=== PATIENT | male | born 1955 | race Caucasian/White ===

== ENCOUNTER → 2018-10-27 | Outpatient (CLI) | END | disposition home or self-care (01) ==

== ENCOUNTER → 2018-11-10 | Outpatient (CLI) | END | disposition home or self-care (01) ==

== ENCOUNTER 2018-12-31 07:11 | Day surgery (SDC) | payer MEDICARE, BC ==
[2018-12-30 11:17] VITALS: BMI 32.4
[2018-12-31] VITALS (11 sets, daily range): BP systolic 106–155; BP diastolic 55–89; PULSE 48–59; RESP 15–20; Ht 175.3 cm; Wt 70.1 kg
[~2018-12-31] VITALS: Ht 175.3 cm; Wt 70.1 kg
[~2018-12-31 07:11] MED LIST: DIAZEPAM 5 MG TAB PO ONE; DIPHENHYDRAMINE 50 MG CAP PO ONE; FAMOTIDINE 20 MG TAB PO ONE; HYDR-2059 PO; NAPR-688 PO; SOD CHLORIDE 0.45% 1,000 ML IV SCH
[2018-12-31] MEDS ORDERED: PRAV10TA43 PO (07:40)
[2018-12-31] MEDS ORDERED: ASPI81TA52 PO (07:40)
[2018-12-31] MEDS ORDERED: LEVO100T82 PO (07:41)
[2018-12-31] MEDS ORDERED: METO-335 PO (07:41)
[2018-12-31] MEDS ORDERED: HEPARIN 1000 UNITS/ML 10 ML INJ ONE (08:51)
[2018-12-31] MEDS ORDERED: FENTAnyl 50 MCG/ML VIAL ONE (08:51)
[2018-12-31] MEDS ORDERED: MIDAZOLAM 1 MG/ML 2 ML INJ ONE (08:51)
[2018-12-31] MEDS ORDERED: IODIXANOL LOCM 100 ML BTL ONE ×4 (08:51→10:50)
[2018-12-31] MEDS ORDERED: VERAPAMIL 5 MG INJ ONE (08:52)
[2018-12-31] MEDS ORDERED: NITROGLYCERIN (IC) 100 MCG/ML INJ ONE (08:52)
[2018-12-31] MEDS ORDERED: ADENOSINE 30 ML ONE (10:17)
[2018-12-31] MEDS ORDERED: SOD CHLORIDE 0.9% 1,000 ML IV SCH (10:57)
[2018-12-31] MEDS ORDERED: AL HYDROX/MG HYDROX/SIMETH 30 ML CUP PO PRN (11:00)
[2018-12-31] MEDS ORDERED: OXYCODONE/ACETAMINOPHEN (5/325) TAB PO PRN (11:00)
[2018-12-31] MEDS ORDERED: ZOLPIDEM 5 MG TAB PO PRN (11:00)
[2018-12-31] MEDS ORDERED: ACETAMINOPHEN 325 MG TAB PO PRN (11:00)
[2018-12-31] MEDS ORDERED: morphine 2 MG INJ IV PRN (11:00)
[2018-12-31] MEDS ORDERED: ONDANSETRON 4 MG INJ IV PRN (11:00)
[2018-12-31] MEDS ORDERED: ASPIRIN 325 MG TAB ONE (11:01)
[2018-12-31] MEDS ORDERED: TICAGRELOR 90 MG TABLET ONE (11:01)
--- NOTE | 2018-12-31 11:02 | SIPON ---
Date/Time of Note Date/Time of Note DATE: 12/31/18 TIME: 11:01 Operative Report Preoperative Diagnosis 1.Chest pain 2.abnl mpi 3.abnl cta Postoperative Diagnosis 1.obstructuve cad s/p stent to LAD x 1 with ROSARIO Operation/Procedure Performed 1.LHC 2.PTCA/stent x 1 to LAD 3.FFR LAD Surgeon see signature line public services assistant 1.Chandler Anesthesia: moderate sedation Estimated blood loss: minimal Transfusion Required none Specimen none Grafts/Implants none Complications none TOLU VOSS Dec 31, 2018 11:02
--- NOTE | 2018-12-31 11:45 | NUR ---
patient arrived from [facility], alert and oriented, denies pain, no short of breath, O2 sat 100% in RA, pt SB in the monitor. oriented to the room, call light in reached.
--- NOTE | 2018-12-31 13:02 | NUR ---
removal of air to TR band right wrist started, no bleeding noted.
[2018-12-31] MEDS ORDERED: INFLUENZA VIRUS VACCINE 0.5 ML (DISPENSING) IM* ONE (13:30)
--- NOTE | 2018-12-31 14:14 | CARRPT ---
DATE OF PROCEDURE: 12/31/2018 TYPE OF PROCEDURES: 1. Left heart catheterization. 2. Coronary angiography. 3. Fractional flow reserve and an IFR performed in LAD. 4. Measurement of left ventricular end-diastolic pressure. 5. Moderate conscious sedation. 6. Percutaneous transluminal coronary angioplasty with placement of lines by [employer]ience drug-eluting mirella nt x1 to mid LAD, 3.0 x 18 mm and 2.5 x 8 mm. ATTENDING PHYSICIAN: Tolu Bashir MD REFERRING PHYSICIAN: Levon Dean MD INDICATION: Chest pain refractory to medical therapy, positive stress test, positive CTA for obstruc tive coronary artery disease. BRIEF HISTORY AND HOSPITAL COURSE: Mr. Marie is a 63-year-old male with history of hypertension and dyslipidemia, who initially presented with complaints of substernal chest pain and underwent a ca rdiac stress test showing positive ischemia and then a CTA that revealed possible multi-distribution coronary artery disease; therefore he has been referred for left heart catheterization to assess for possibility of significant obstructive coronary artery disease lending to symptoms of substernal ches t pain and positive stress test findings and positive CTA. DESCRIPTION OF PROCEDURE: After informed consent was obtained, the patient was brought to the [facility] cardiac catheterization lab where his right radial area was prepped and draped in usual sterile fashion. In order to achieve adequate anesthesia, a 2% lidocaine was infiltrated i nto the right radial area. In the modified Seldinger technique, the radial artery was cannulated and a 6-Bahraini arterial sheath was placed. A 6-Bahraini JL3.5 catheter was used to cannulate the left cayetano n coronary ostium. With contrast injection, multiple views of the left coronary arterial system were obtained. JL3.5 was removed with a guidewire and a JR4 was used to cannulate the right coronary art erial ostium unsuccessfully. We then attempted a [place] Right unsuccessfully and finally we were a ble to cannulate it with an AL1 as it came off superior and posterior. After which with contrast inj ection, multiple views of this vessel were obtained. AL1 was removed. A 6-Bahraini pigtail was passed down the ascending aorta and placed in LV. LVEDP was measured and pullback across the aortic valve to assess for significant gradient, which there was not and removed. Subsequently at this time, the patient had an ACT measured and was given an additional 3000 of heparin in order to achieve an adequa te pre-interventional ACT and we moved directly into an interventional procedure. The patient had a Q3.5 guide used to cannulate the left main coronary ostium. A 0.014 pressure wire was passed distal to the lesion and an IFR was initially performed achieving result of 0.87, positive for obstructive l esion. It was pulled back as there were tandem lesions in between these 2 lesions and then repeated it and returned at 0.92 above the cutoff for flow-limiting lesion. Subsequently, the wire was then p ushed distal again and FFR was performed achieving result of 0.76, positive for flow-limiting lesion. Subsequently at this time given the findings of IFR and FFR, we elected to stent the more distal 2 lesions and the first lesion had been negative on its own with IFR assessment. Subsequently, the les ion was pretreated with a 2.5 x 15 mm balloon up to 12 to 14 atmospheres and it was stented with a 3. 0 x 18 mm drug-eluting stent deployed at 14 atmospheres x2. The stent delivery balloon was removed. Followup angiogram was obtained revealing excellent result, deployment of stent, SHAHANA 3 flow through out the vessel and possible step down versus edge dissection subsequent at the distal portion. Subse quently, a second stent 2.5 x 8 mm was placed just at the distal edge of the stent and inflated to 14 atmospheres x2. Stent delivery system was removed. Followup angiogram was obtained revealing excel lent result now with no further significant step down or dissection, SHAHANA 3 flow throughout the vesse l, no signs of complication or dissection. Subsequently at this time, the patient's guide and guidew ires were removed. The patient's sheath was removed. TR band was applied. This completed the proce dure. There were no noted complications. FINDINGS: Coronary angiography: Left main is 4 mm, no significant focal stenoses. Circumflex proxi julian is a 3 mm vessel with an ostial 20% stenosis. There is continuation AV groove, a subcentimeter vessel with areas of stenosis up to approximately 50%, high branching obtuse marginal, 2.5 mm vessel with stenosis of approximately 50% in its proximal portion and it is a trifurcation with all branche s being approximately 3 mm and the most superior branch having a stenosis of approximately 50% yet no significant focal stenoses. LAD proximally is a 3.5 mm vessel and in its mid portion has a 50% to 6 0% stenosis and then the distal portion has a 60% to 70% stenosis tubular. There is a mid branching diagonal 2 mm vessel with no significant focal stenosis. The patient's right coronary artery proxima lly is a 2.5 mm vessel, has a 70% to 80% stenosis then becomes 100% occluded and can be recapitulated completely in distal portion via right to right collateral flow as well as left to right collateral flow. PTCA and stent placement: Prior to PTCA and stent placement, the patient had a 70% stenosis. Post-P TCA and stent placement, the patient had no residual stenosis, SHAHANA 3 flow throughout the vessel, mil d step down at the end of the stent and no signs of complication including perforation or dissection. IFR revealed result of 0.87, when distal to both lesions resulted to 0.92 between the 2 lesions. FFR has the result of 0.76 distal to the 2 lesions both consistent with flow-limiting lesions of the dis chris lesion. Measurement of left ventricular end diastolic pressure is 26 to 27. No significant aortic stenosis b y gradient. TOTAL FLUOROSCOPY TIME: 18.4 minutes. TOTAL CONTRAST: 280 mL. IMPRESSION: 1. 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 2. Elevated left heart filling pressures. 3. No significant aortic stenosis by gradient. RECOMMENDATIONS: In light of procedure findings at this time, we would: 1. Maintain the patient on Brilinta 90 mg 1 tab p.o. b.i.d. as the patient has been loaded with 180 here and aspirin 81 mg 1 tab p.o. daily indefinitely as the patient was loaded with 325 here. 2. Maximize medical management. 3. Aggressive risk factor reduction. 4. The patient will be admitted to the hospital for post-intervention observation and continued conner gement of symptoms with probable discharge the following day. Dictated By: TOLU BOUCHER/CHANDANA Conf#: [id number] [facility]#: [id number]
--- NOTE | 2018-12-31 14:30 | NUR ---
TR BAND REMOVAL pt in bed alert and oriented, TR band to rt wrist intact, no hematoma, no swelling noted reverse barbeau performed, capillary refill present 1300- 2 ml of air removed, no bleeding, BP 143/73, HR 47, O2 sat 100%, RR 16. 1315- 2 ml of air removed, no bleeding, BP 152/75, HR 50, O2 sat 100%, RR 12, 1330- 2 ml of air removed, no bleeding, BP 149/80, HR- 53, O2 sat 100%, RR 14 1345 -2 ml of air removed, no bleeding, BP 134/94, HR- 54, O2 sat 100%, RR 13 1400- 2 ml of air removed, no bleeding, BP 135/80, HR- 52, O2 sat 100%, RR 16 1415- 2 ml of air removed, no bleeding, BP 135/77, HR- 50, O2 sat 100%, RR 18 1430- TR band removed, no bleeding BP 132/74, HR 50, O2 sat 100%, RR 16, cleanse site with alcohol swab dry with dry dressing applied band aid, provided pt education and instruction for post removal of TR band, verbalized understanding. will continue to monitor. Addendum: 12/31/18 at 1804 by MADELEINE GOLDMAN RN immobilizer removed.
--- NOTE | 2018-12-31 16:45 | NUR ---
pt in bed , right wrist with band aid no bleeding, no hematoma, will continue to monitor.
--- NOTE | 2018-12-31 19:11 | NUR ---
EOSS: rt wrist with band aid intact, no bleeding, no significant change of condition, continue current plan of care.
[2018-12-31] MEDS ORDERED: ATORVASTATIN 10 MG TAB PO SCH (21:00)
[2019-01-01] VITALS (7 sets, daily range): BP systolic 100–111; BP diastolic 52–61; PULSE 53–62; RESP 18–20
--- NOTE | 2019-01-01 02:55 | HP ---
DATE OF ADMISSION: 12/31/2018 CHIEF COMPLAINT: Exertional chest pain. HISTORY OF PRESENT ILLNESS: The patient is a 63-year-old gentleman with history of hypertension, dyslipidemia, hypothyroidism, was seen by Dr. Bashir' group as an outpatient due to exertional substernal chest pain. The patient underwent a nuclear stress test as an outpatient which was positive for ischemia. The patient subsequently also underwent CT coronary angiogram that revealed possible coronary artery disease. The patient was brought into hospital today and underwent a left heart cardiac catheterization. The patient was noted to have 2-vessel obstructive coronary artery disease involving intermedius to LAD. The patient underwent successful PTCA and stent placement x2. 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 The patient was given loading dose of Brilinta in the blood bank laboratory professional along with aspirin. The patient was sent to the telemetry floor. Currently denies any chest pain. No orthopnea. No headache, syncope. No history of abdominal pain. No history of recent fever or chills. No history of leg edema. No history of claudication. No history of change in vision. No history of any focal weakness. No history of any acute skin rash or any joint swelling. REVIEW OF SYSTEMS: A total of 10 systems were reviewed and all pertinent positive and negative findings have been described in HPI. Rest of the systems is unremarkable. PAST SURGICAL HISTORY: The patient is status post surgery for incarcerated right inguinal hernia. ALLERGIES: NONE. SOCIAL HISTORY: The patient smoked at least 1 pack per day, has been smoking for several decades. No heavy alcohol abuse. FAMILY HISTORY: Negative for coronary artery disease. PHYSICAL EXAMINATION: GENERAL: Revealed the patient to be awake, alert, fairly oriented. VITAL SIGNS: Temperature 98, pulse 55, respiration 18, blood pressure 106/55, O2 saturation 96% on room air. HEENT: Atraumatic, normocephalic. Conjunctivae and lids are normal. Oropharynx is clear. NECK: Supple. No mass, lymph node, thyromegaly, no carotid bruit. CHEST: Fairly clear. No use of accessory muscles. CARDIOVASCULAR: Regular rate, rhythm. S1, S2 normal. No murmur. ABDOMEN: Soft, nondistended, nontender. No organomegaly. EXTREMITIES: No leg edema. Pedal pulses are palpable. SKIN: Without acute rash or ulcer. NEUROLOGIC: The patient is awake, alert, fairly oriented with no gross focal deficit. LABORATORY DATA: Done this morning, WBC 8.8, hemoglobin 14.7, platelet 301. Sodium 142, potassium 4.4, BUN 11, creatinine 0.7, glucose 93, calcium 9.4. LDL 120. Coagulation profile including both PT, PTT and INR were within normal limits. DIAGNOSTIC DATA: Chest x-ray: No acute disease. IMPRESSION: 1. Multivessel coronary artery disease, status post PTCA and drug-eluting stent placement. Please read detailed catheterization report from Dr. Bashir. 2. Hypertension. 3. Dyslipidemia. 4. Hypothyroidism. PLAN: The patient will be started on aspirin, metoprolol, Synthroid and Lipitor in addition to Brilinta. The patient will be given IV NS. We will do a followup BMP to evaluate renal function. Plan of care was discussed with patient's family. We will optimize statin therapy. The patient was strongly advised to quit smoking. Dictated By: EITAN LUCAS/CHANDANA Conf#: [id number] DID#: [id number] CC: TOLU BASHIR MD;*EndCC* MTDD
[2019-01-01] MEDS ORDERED: LEVOTHYROXINE 100 MCG TAB PO SCH (07:00)
--- NOTE | 2019-01-01 07:06 | NUR ---
VS REMAINS STABLE. NO EPISODES OF CP. ALL NEEDS ATTENDED. WILL ENDORSE TO AM SHIFT FOR CONTINUITY OF CARE
[2019-01-01] MEDS ORDERED: TICAGRELOR 90 MG TABLET PO SCH (09:00)
[2019-01-01] MEDS ORDERED: METOPROLOL (XL) 25 MG TAB PO SCH (09:00)
[2019-01-01] MEDS ORDERED: ASPIRIN (EC) 81 MG TAB PO SCH (09:00)
[2019-01-01] MEDS ORDERED: INFLUENZA VIRUS VACCINE 0.5 ML (DISPENSING) IM* ONE (10:00)
--- NOTE | 2019-01-01 13:27 | PN ---
Date/Time of Note Date/Time of Note DATE: 01/01/19 TIME: 13:25 Assessment/Plan VTE Prophylaxis Risk score (from Ns)>0 risk: 4 SCD applied (from Ns): No Lines/Catheters IV Catheter Type (from [facility]): Saline Lock Assessment/Plan Assessment/Plan 1. Multivessel coronary artery disease, status post PTCA and drug-eluting stent placement. Please read detailed catheterization report from Dr. Bashir. -on aspirin 2. Hypertension. 3. Dyslipidemia- Synthroid 4. Hypothyroidism. -CONT Synthroid 5, Smoker - smoking cessation Patient seen in collaboration with Dr Woods Result Diagram: 01/01/19 0550 01/01/19 0550 Results 24hrs Laboratory Tests Test 01/01/19 05:50 White Blood Count 9.0 Red Blood Count 4.45 L Hemoglobin 13.7 L Hematocrit 40.7 L Mean Corpuscular Volume 91.5 Mean Corpuscular Hemoglobin 30.8 Mean Corpuscular Hemoglobin Concent 33.7 Red Cell Distribution Width 13.0 Platelet Count 277 Mean Platelet Volume 9.3 Immature Granulocytes % 0.400 Neutrophils % 68.6 Lymphocytes % 19.5 Monocytes % 7.9 Eosinophils % 2.7 Basophils % 0.9 Nucleated Red Blood Cells % 0.0 Immature Granulocytes # 0.040 H Neutrophils # 6.2 Lymphocytes # 1.8 Monocytes # 0.7 Eosinophils # 0.2 Basophils # 0.1 Nucleated Red Blood Cells # 0.0 Sodium Level 139 Potassium Level 4.2 Chloride Level 112 H Carbon Dioxide Level 23 Anion Gap 4 L Blood Urea Nitrogen 16 Creatinine 0.76 Est Glomerular Filtrat Rate mL/min > 60 Glucose Level 96 Calcium Level 9.0 Creatine Kinase 42 Creatine Kinase Index 1.1 Creatinine Kinase MB (Mass) 0.46 Troponin I 0.038 Exam/Review of Systems Exam Vitals Vital Signs Date Temp Pulse Resp B/P (MAP) Pulse Ox O2 O2 Flow FiO2 Time Delivery Rate 01/01/19 98.0 62 20 111/56 96 11:32 (74) 01/01/19 Room Air 03:38 Intake and Output 12/31/18 12/31/18 01/01/19 1515:00 23:00 07:00 IntakeIntake Total 1460 ml 650 ml BalanceBalance 1460 ml 650 ml Results Results 24hrs Laboratory Tests Test 01/01/19 05:50 White Blood Count 9.0 Red Blood Count 4.45 L Hemoglobin 13.7 L Hematocrit 40.7 L Mean Corpuscular Volume 91.5 Mean Corpuscular Hemoglobin 30.8 Mean Corpuscular Hemoglobin Concent 33.7 Red Cell Distribution Width 13.0 Platelet Count 277 Mean Platelet Volume 9.3 Immature Granulocytes % 0.400 Neutrophils % 68.6 Lymphocytes % 19.5 Monocytes % 7.9 Eosinophils % 2.7 Basophils % 0.9 Nucleated Red Blood Cells % 0.0 Immature Granulocytes # 0.040 H Neutrophils # 6.2 Lymphocytes # 1.8 Monocytes # 0.7 Eosinophils # 0.2 Basophils # 0.1 Nucleated Red Blood Cells # 0.0 Sodium Level 139 Potassium Level 4.2 Chloride Level 112 H Carbon Dioxide Level 23 Anion Gap 4 L Blood Urea Nitrogen 16 Creatinine 0.76 Est Glomerular Filtrat Rate mL/min > 60 Glucose Level 96 Calcium Level 9.0 Creatine Kinase 42 Creatine Kinase Index 1.1 Creatinine Kinase MB (Mass) 0.46 Troponin I 0.038 Medications Medication Current Medications Acetaminophen (Tylenol Tab) 650 mg Q4H PRN PO PAIN; Start 12/31/18 at 11:00 Oxycodone/ Acetaminophen (Percocet (5/ 325)) 1 tab Q4H PRN PO PAIN; Start 12/31/18 at 11:00 Morphine Sulfate (morphine) 1 mg Q1H PRN IV PAIN; Start 12/31/18 at 11:00 Zolpidem Tartrate (Ambien) 5 mg HS MAY REPEAT X 1 PRN PO INSOMNIA; Start 12/31/18 at 11:00 Al Hydrox/Mg Hydrox/Simethicone (Mag-Al Plus) 30 ml Q4H PRN PO GASTROINTESTINAL UPSET; Start 12/31/18 at 11:00 Ondansetron HCl (Zofran Inj) 4 mg Q4H PRN IV NAUSEA AND/OR VOMITING; Start 12/31/18 at 11:00 Aspirin (Halfprin) 81 mg DAILY PO Last administered on 01/01/19at 08:29; Admin Dose 81 MG; Start 01/01/19 at 09:00 Levothyroxine Sodium (Synthroid) 100 mcg BEFORE BREAKFAST PO Last administered on 01/01/19at 06:34; Admin Dose 100 MCG; Start 01/01/19 at 07:00 Metoprolol Succinate (Toprol Xl) 25 mg DAILY PO ; Start 01/01/19 at 09:00 Atorvastatin Calcium (Lipitor) 20 mg DAILY@21 PO ; Start 01/01/19 at 21:00 Ticagrelor (Brilinta) 90 mg BID PO Last administered on 01/01/19at 08:32; Admin Dose 90 MG; Start 01/01/19 at 09:[address]SE[place] Jan 01, 2019 13:27
--- NOTE | 2019-01-01 13:32 | PDOCDIS ---
Discharge Instructions CONDITION [id number] Patient Condition: [id number] Stable HOME CARE INSTRUCTIONS: [id number] Diet Instructions: [id number] Low Fat /Cholesterol ACTIVITY: [id number] Activity Restrictions: [id number] Slowly Increase Activity Rest between Activity Avoid heavy lifting Do not Drive Do not operate Machinery Do not operate Power Tool Avoid Heavy Housework [id number] Bathing Restrictions: [id number] Sponge Bath FOLLOW UP/APPOINTMENTS Follow-up Plan - FU with PMD X 1 week - FU with site head as recommended - Calll [phone] 0r got to the nearest hospital if symptoms get worse; patient verbalized understanding dc instructions Dw COURT Leonard Jan 01, 2019 13:32
[2019-01-01] MEDS ORDERED: TICA90TA PO (13:50)
--- NOTE | 2019-01-01 14:03 | CONS ---
Assessment/Plan Assessment/Plan Assessment/Plan (Daily) CAD s/p stenting LAD Dyslipidemia Hypertension Continue Toprol XL Continue ASA and Brilinta Continue Lipitor Continue Levothyroxine Follow up with Dr Bashir in 1 week Consultation Date/Type/Reason Admit Date/Time Type of Consult Cardiology Date/Time of Note DATE: 01/01/19 TIME: 14:01 Constitutional: no complaints Respiratory: no complaints Cardiovascular: no complaints Gastrointestinal: no complaints Past Medical History Home Meds Active Scripts Ticagrelor* (Brilinta*) 90 Mg Tablet, 90 MG PO BID for 30 Days, TAB Prov:INGRID JOSEPHBIR 01/01/19 Reported Medications Levothyroxine Sodium* (Levoxyl*) 100 Mcg Tablet, 100 MCG PO BEFORE BREAKFAST, #30 TAB 12/31/18 Metoprolol Succinate* (Toprol XL*) 25 Mg Tab.sr.24h, 25 MG PO DAILY, #30 TAB 12/31/18 Pravastatin Sodium* (Pravastatin Sodium*) 10 Mg Tablet, 10 MG PO HS, TAB 12/31/18 Aspirin (Low Dose Aspirin) 81 Mg Tablet.dr, 81 MG PO DAILY, #30 TAB 12/31/18 Discontinued Reported Medications Naproxen* (Naproxen*) 500 Mg Tablet, 550 MG PO BID 09/04/11 Hydrocodone Bit-Acetaminophen* (Hydrocodone-APAP*) 1 Tab Tablet, 1 TAB PO 07/24/11 Medications Current Medications Acetaminophen (Tylenol Tab) 650 mg Q4H PRN PO PAIN; Start 12/31/18 at 11:00 Oxycodone/ Acetaminophen (Percocet (5/ 325)) 1 tab Q4H PRN PO PAIN; Start 12/31/18 at 11:00 Morphine Sulfate (morphine) 1 mg Q1H PRN IV PAIN; Start 12/31/18 at 11:00 Zolpidem Tartrate (Ambien) 5 mg HS MAY REPEAT X 1 PRN PO INSOMNIA; Start 12/31/18 at 11:00 Al Hydrox/Mg Hydrox/Simethicone (Mag-Al Plus) 30 ml Q4H PRN PO GASTROINTESTINAL UPSET; Start 12/31/18 at 11:00 Ondansetron HCl (Zofran Inj) 4 mg Q4H PRN IV NAUSEA AND/OR VOMITING; Start 12/31/18 at 11:00 Aspirin (Halfprin) 81 mg DAILY PO Last administered on 01/01/19at 08:29; Admin Dose 81 MG; Start 01/01/19 at 09:00 Levothyroxine Sodium (Synthroid) 100 mcg BEFORE BREAKFAST PO Last administered on 01/01/19at 06:34; Admin Dose 100 MCG; Start 01/01/19 at 07:00 Metoprolol Succinate (Toprol Xl) 25 mg DAILY PO ; Start 01/01/19 at 09:00 Atorvastatin Calcium (Lipitor) 20 mg DAILY@21 PO ; Start 01/01/19 at 21:00 Ticagrelor (Brilinta) 90 mg BID PO Last administered on 01/01/19at 08:32; Admin Dose 90 MG; Start 01/01/19 at 09:00 Allergies: Coded Allergies: No Known Allergies (Verified Allergy, Unknown, 12/31/18) Social History Smoking Status: Never smoker Exam/Review of Systems Vital Signs Vitals Vital Signs Date Temp Pulse Resp B/P (MAP) Pulse Ox O2 O2 Flow FiO2 Time Delivery Rate 01/01/19 98.0 62 20 111/56 96 11:32 (74) 01/01/19 Room Air 03:38 Intake and Output 12/31/18 12/31/18 01/01/19 1515:00 23:00 07:00 IntakeIntake Total 1460 ml 650 ml BalanceBalance 1460 ml 650 ml Exam Constitutional: alert, oriented Head: normocephalic, atraumatic Neck: supple, non-tender Respiratory: clear to auscultation Cardiovascular: regular rate and rhythm (no m/r/g) Gastrointestinal: soft, nl liver, spleen Extremities: normal pulses Labs Result Diagram: 01/01/19 0550 01/01/19 0550 Results 24hrs Laboratory Tests Test 01/01/19 05:50 White Blood Count 9.0 Red Blood Count 4.45 L Hemoglobin 13.7 L Hematocrit 40.7 L Mean Corpuscular Volume 91.5 Mean Corpuscular Hemoglobin 30.8 Mean Corpuscular Hemoglobin Concent 33.7 Red Cell Distribution Width 13.0 Platelet Count 277 Mean Platelet Volume 9.3 Immature Granulocytes % 0.400 Neutrophils % 68.6 Lymphocytes % 19.5 Monocytes % 7.9 Eosinophils % 2.7 Basophils % 0.9 Nucleated Red Blood Cells % 0.0 Immature Granulocytes # 0.040 H Neutrophils # 6.2 Lymphocytes # 1.8 Monocytes # 0.7 Eosinophils # 0.2 Basophils # 0.1 Nucleated Red Blood Cells # 0.0 Sodium Level 139 Potassium Level 4.2 Chloride Level 112 H Carbon Dioxide Level 23 Anion Gap 4 L Blood Urea Nitrogen 16 Creatinine 0.76 Est Glomerular Filtrat Rate mL/min > 60 Glucose Level 96 Calcium Level 9.0 Creatine Kinase 42 Creatine Kinase Index 1.1 Creatinine Kinase MB (Mass) 0.46 Troponin I 0.038 Medications Medications Current Medications Acetaminophen (Tylenol Tab) 650 mg Q4H PRN PO PAIN; Start 12/31/18 at 11:00 Oxycodone/ Acetaminophen (Percocet (5/ 325)) 1 tab Q4H PRN PO PAIN; Start 12/31/18 at 11:00 Morphine Sulfate (morphine) 1 mg Q1H PRN IV PAIN; Start 12/31/18 at 11:00 Zolpidem Tartrate (Ambien) 5 mg HS MAY REPEAT X 1 PRN PO INSOMNIA; Start 12/31/18 at 11:00 Al Hydrox/Mg Hydrox/Simethicone (Mag-Al Plus) 30 ml Q4H PRN PO GASTROINTESTINAL UPSET; Start 12/31/18 at 11:00 Ondansetron HCl (Zofran Inj) 4 mg Q4H PRN IV NAUSEA AND/OR VOMITING; Start 12/31/18 at 11:00 Aspirin (Halfprin) 81 mg DAILY PO Last administered on 01/01/19at 08:29; Admin Dose 81 MG; Start 01/01/19 at 09:00 Levothyroxine Sodium (Synthroid) 100 mcg BEFORE BREAKFAST PO Last administered on 01/01/19at 06:34; Admin Dose 100 MCG; Start 01/01/19 at 07:00 Metoprolol Succinate (Toprol Xl) 25 mg DAILY PO ; Start 01/01/19 at 09:00 Atorvastatin Calcium (Lipitor) 20 mg DAILY@21 PO ; Start 01/01/19 at 21:00 Ticagrelor (Brilinta) 90 mg BID PO Last administered on 01/01/19at 08:32; Admin Dose 90 MG; Start 01/01/19 at 09:00 YASHIRA LUJAN M.D. Jan 01, 2019 14:03
--- NOTE | 2019-01-01 14:20 | DS ---
Date/Time of Note Date/Time of Note DATE: 01/01/19 TIME: 14:18 Discharge Summary Admission/Discharge Info Admit Date/Time Discharge Date/Time Patient Condition: Stable Home Meds Active Scripts Ticagrelor* (Brilinta*) 90 Mg Tablet, 90 MG PO BID for 30 Days, TAB Prov:COURT JOSEPH 01/01/19 Reported Medications Levothyroxine Sodium* (Levoxyl*) 100 Mcg Tablet, 100 MCG PO BEFORE BREAKFAST, #30 TAB 12/31/18 Metoprolol Succinate* (Toprol XL*) 25 Mg Tab.sr.24h, 25 MG PO DAILY, #30 TAB 12/31/18 Pravastatin Sodium* (Pravastatin Sodium*) 10 Mg Tablet, 10 MG PO HS, TAB 12/31/18 Aspirin (Low Dose Aspirin) 81 Mg Tablet.dr, 81 MG PO DAILY, #30 TAB 12/31/18 Discontinued Reported Medications Naproxen* (Naproxen*) 500 Mg Tablet, 550 MG PO BID 09/04/11 Hydrocodone Bit-Acetaminophen* (Hydrocodone-APAP*) 1 Tab Tablet, 1 TAB PO 07/24/11 Follow-up Plan - FU with PMD X 1 week - FU with [employer] load [employer] as recommended - Calll 911 0r got to the nearest hospital if symptoms get worse; patient verbalized understanding dc instructions Dw Dr Alfonso Primary Care Provider Not On Staff Doctor Pending Labs Laboratory Tests Test 01/01/19 05:50 White Blood Count 9.0 10^3/ul (4.8-10.8) Red Blood Count 4.45 10^6/ul (4.70-6.10) Hemoglobin 13.7 g/dl (14.0-18.0) Hematocrit 40.7 % (42.0-52.0) Mean Corpuscular Volume 91.5 fl (82.0-101.0) Mean Corpuscular Hemoglobin 30.8 pg (29.0-33.0) Mean Corpuscular Hemoglobin Concent 33.7 g/dl (32.0-37.0) Red Cell Distribution Width 13.0 % (11.5-14.5) Platelet Count 277 10^3/UL (140-415) Mean Platelet Volume 9.3 fl (7.4-10.4) Immature Granulocytes % 0.400 % (0.001-0.429) Neutrophils % 68.6 % (39.0-77.0) Lymphocytes % 19.5 % (15.0-51.0) Monocytes % 7.9 % (0.0-11.0) Eosinophils % 2.7 % (0.0-7.0) Basophils % 0.9 % (0.0-2.0) Nucleated Red Blood Cells % 0.0 /100WBC (0.0-0.0) Immature Granulocytes # 0.040 10^3/ul (0.0-0.031) Neutrophils # 6.2 10^3/ul (1.6-7.5) Lymphocytes # 1.8 10^3/ul (0.8-2.9) Monocytes # 0.7 10^3/ul (0.3-0.9) Eosinophils # 0.2 10^3/ul (0.0-0.5) Basophils # 0.1 10^3/ul (0.0-0.1) Nucleated Red Blood Cells # 0.0 10^3/ul (0.0-0.0) Sodium Level 139 mmol/L (135-144) Potassium Level 4.2 mmol/L (3.5-5.1) Chloride Level 112 mmol/L (97-110) Carbon Dioxide Level 23 mmol/L (21-31) Anion Gap 4 (5-13) Blood Urea Nitrogen 16 mg/dl (7-20) Creatinine 0.76 mg/dl (0.61-1.24) Est Glomerular Filtrat Rate mL/min > 60 mL/min (>60) Glucose Level 96 mg/dl (70-220) Calcium Level 9.0 mg/dl (8.4-10.2) Creatine Kinase 42 IU/L (23-200) Creatine Kinase Index 1.1 Creatinine Kinase MB (Mass) 0.46 ng/ml (0.0-2.4) Troponin I 0.038 ng/ml (0.000-0.120) COURT JOSEPH Jan 01, 2019 14:20
[2019-01-01] MEDS ORDERED: ATORVASTATIN 10 MG TAB PO SCH (21:00)
== END 2019-01-01 14:45 | disposition home or self-care (01) ==
LOC: SDS 07:11 → REC 11:32 → UNDOADMIN 11:32 → TEL 11:33 → REC 11:33 → TEL 11:33 → SDS 01-01 14:45
PROVIDERS: ATTEND Internal Medicine
DX: I25.10 Atherosclerotic heart disease of native coronary artery without angina pectoris (principal); I10 Essential (primary) hypertension; E78.5 Hyperlipidemia, unspecified; R94.39 Abnormal result of other cardiovascular function study; E03.9 Hypothyroidism, unspecified
CPT/HCPCS: 71045; 80048; 80061; 82550; 82553; 84484; 85025; 85610; 85730; 93005; J0153; J1644; J2250; J3010; Q9967; 90686; 93458; 93571; C1725; C1876; C1887; C9600